=== PATIENT | female | born 1965 | race Caucasian/White ===

== ENCOUNTER 2023-05-30 15:55 | Outpatient (OUT) | payer BC, SELFPAY ==
--- NOTE | 2023-05-30 | XR_ITS ---
The [address] [address] Patient Name: DEB LIZARRAGA MRN: [id number] date: 1965 Sex: F Assigned Patient Location: [facility] Current Patient Location: [facility] Accession/Order Number: [id number] Exam Date: 05/30/2023 15:42 Report Date: 05/30/2023 18:41 At the request of: JN GUTIERREZ Procedure: XR foot ALLISON min 3V EXAMINATION: XR foot ALLISON min 3V HISTORY: BILATERAL FEET BUNIONS COMPARISON: No relevant comparison available. FINDINGS: RIGHT FINDINGS: BONES: No acute fracture or dislocation. Minimal hallux valgus. Mild enthesopathic spurring of the calcaneus SOFT TISSUES: Negative. No visible soft tissue swelling. OTHER: Negative. LEFT FINDINGS: BONES: No acute fracture or dislocation. Mild hallux valgus. Mild enthesopathic spurring of the calcaneus SOFT TISSUES: Negative. No visible soft tissue swelling. OTHER: Negative. XR/XR foot ALLISON min 3V IMPRESSION: RIGHT CONCLUSION: Mild degenerative change LEFT CONCLUSION: Mild degenerative change Electronically authenticated by: KELLY ANN Date: 05/30/2023 18:41
== END 2023-05-30 15:56 | disposition home or self-care (01) ==
LOC: RAD 15:56
PROVIDERS: Visit Provider Podiatrist Foot & Ankle Surgery
DX: M79.671 Pain in right foot (principal); M79.672 Pain in left foot
CPT/HCPCS: 73630